=== PATIENT | female | born 1985 | race Caucasian/White ===

== ENCOUNTER 2020-04-10 10:59 | Emergency (ER) | payer OTHER, SELFPAY ==
--- NOTE | ~2020-04-10 | XR_ITS ---
EXAMINATION: XR tibia fibula LT 2V DATE: 04/10/2020 11:21 INDICATION: Fall down stairs with bruising at the medial left lower leg. TECHNIQUE: Anteroposterior and lateral views of the left tibia and fibula were obtained. COMPARISON: None. FINDINGS: Alignment is normal. No fracture. Joint spaces are normal. No left ankle joint effusion. Bone island in the left calcaneus. Soft tissues are unremarkable. IMPRESSION: 1. No osseous abnormality. Reviewed, dictated and finalized at location A. IMPRESSION: 1. No osseous abnormality.
[2020-04-10 11:10] VITALS: BP 140/89; PULSE 98; RESP 20; TEMP 36.8; O2SAT 99
--- NOTE | 2020-04-10 11:59 | ED.GENADULT ---
HPI - General Adult General Chief complaint: Extremity Injury, Lower <Nick Anderson PA-C Last Filed: 04/10/20 12:03> Stated complaint: fall/left leg pain <MARKOS Moctezuma Last Filed: 04/10/20 12:03> Time Seen by Provider: 04/10/20 11:18 <MARKOS Moctezuma Last Filed: 04/10/20 12:03> Source: patient <MARKOS Moctezuma Last Filed: 04/10/20 12:03> Mode of arrival: ambulatory <MARKOS Moctezuma Last Filed: 04/10/20 12:03> Limitations: no limitations <MARKOS Moctezuma Last Filed: 04/10/20 12:03> History of Present Illness HPI narrative: Patient is a 34-year-old female who presents with left doran injury that occurred a few days prior noting that she struck the anterior doran on an object that has resulted in bruising swelling and tenderness that radiates down into the ankle patient denies other injuries or complaints has crutches at home presents in no distress denies other injuries or complaints <Nick Anderson PA-C Last Filed: 04/10/20 12:03> Related Data Allergies/adverse reactions: Allergies Allergy/AdvReac Type Severity Reaction Status Date / Time codeine Allergy Unknown Dyspnea Verified 04/10/20 11:13 latex Allergy Unknown Rash Verified 04/10/20 11:13 Oyster Allergy Severe RESPIR. Uncoded 04/10/20 11:13 DISTRESS, SWELLING <MARKOS Moctezuma Last Filed: 04/10/20 12:03> Review of Systems Review of Systems: All systems reviewed & are unremarkable except as noted in HPI and below <MARKOS Moctezuma Last Filed: 04/10/20 12:03> [facility] Family History Family History: Family History (Updated 12/07/18 @ 09:03 by DOCTOR UNKNOWN) Mother Depression Hypertension Family history of osteoarthritis Family history of elevated blood lipids Family history of diabetes mellitus in first degree relative Father Family history of diabetes mellitus in first degree relative Hypertension Other Diabetes mellitus Family history of allergic disorder Family history of arthritis <MARKOS Moctezuma Last Filed: 04/10/20 12:03> Social History Social History: Social History Smoking status: Former smoker Second hand tobacco smoke exposure: No Smoking end date: 11/01/04 Alcohol intake: never <Nick Anderson PA-C - Last Filed: 04/10/20 12:03> Exam Narrative: Exam Narrative: GENERAL: Well-appearing, well-nourished, and in no acute distress. HEAD: Normocephalic, atraumatic. EYES: PERRLA and EOMI. ENT: Nares clear, no rhinorrhea or epistaxis. Mucous membranes moist. EXTREMITIES: Normal range of motion. No edema. Bruising swelling and tenderness to the anterior left doran SKIN: Warm, dry, no rash. NEURO: No focal deficits. Alert and oriented x3. Neurovascularly intact. Capillary refill less than 2 seconds PSYCH: Normal mood and affect. <Nick Anderson PA-C - Last Filed: 04/10/20 12:03> Course Course Emergency Course: Patient in the room in no distress aware of case findings treatment plan and diagnosis agreeing to follow-up as directed or to return if symptoms worsen or concerns <Nick Anderson PA-C - Last Filed: 04/10/20 12:03> Vital Signs Vital signs: Vital Signs Temperature 98.2 F 04/10/20 11:10 Pulse Rate 98 04/10/20 11:10 Respiratory Rate 04/10/20 11:10 Blood Pressure 140/89 04/10/20 11:10 Pulse Oximetry 99 04/10/20 11:10 Temperature 98.2 F 04/10/20 11:10 Pulse Rate 98 04/10/20 11:10 Respiratory Rate 20 04/10/20 11:10 Blood Pressure 140/89 04/10/20 11:10 Pulse Oximetry 99 04/10/20 11:10 <Nick Anderson PA-C - Last Filed: 04/10/20 12:03> Vital Signs Temperature 98.2 F 04/10/20 11:10 Pulse Rate 98 04/10/20 11:10 Respiratory Rate 20 04/10/20 11:10 Blood Pressure 140/89 04/10/20 11:10 Pulse Oximetry 99 04/10/20 11:10 Temperatu
== END 2020-04-10 12:17 | disposition home or self-care (01) ==
PROVIDERS: Emergency Provider Emergency Medicine; PCP Internal Medicine
DX: S80.12XA Contusion of left lower leg, initial encounter (principal); Z87.891 Personal history of nicotine dependence; X58.XXXA Exposure to other specified factors, initial encounter
CPT/HCPCS: 73590; 99283

== ENCOUNTER 2020-11-22 16:44 | Outpatient (CLI) | payer OTHER, SELFPAY ==
--- NOTE | ~2020-11-22 | MR_ITS ---
EXAMINATION: MR hip LT wo con DATE: 11/22/2020 17:55 INDICATION: Left hip pain TECHNIQUE: Magnetic resonance imaging (MRI) of the left hip was performed without intravenous contra st. Sequences included full-field axial PD-weighted FS FSE and T1-weighted FSE, coronal of the pelvis with T1-weighted FSE and PD-weighted FS FSE, small field of view of the affected hip with axial PD- weighted FS FSE, sagittal PD-weighted FS FSE and coronal PD weighted FS FSE. Additional radial T1-antelmo ghted FGR oriented orthogonal to the acetabular rim were obtained for evaluation of the labrum. COMPARISON: Left hip and pelvis radiograph dated 11/14/2020 FINDINGS: Bones/labrum/cartilage: Mild lower lumbar levocurvature. Alignment is otherwise normal. No fracture, avascular necrosis or p athologic marrow replacing process. Anterior acetabular over coverage which can also be seen with andreas ateral crossover signs at both hips on the prior pelvis radiographs. Linear increased signal at the b ase of the 1:00 to 2:00 position of the anterosuperior acetabular labrum which is equivocal for eithe r a small labral tear or normal sublabral sulcus. Partial-thickness cartilage loss with mild nonunifo rm joint space narrowing at the posterior aspect of the joint space. Cartilage surface appears smooth and there are no degenerative subchondral changes. Fluid: Symmetric physiologic amount of fluid within both hip joints. Soft tissues: Normal and symmetric muscle bulk and signal in the pelvis and visualized proximal thighs. The iliopso as, gluteal and proximal hamstring tendons are normal. The uterus is not identified and has likely be en surgically resected. Limited evaluation of visceral organs of the pelvis is otherwise unremarkabl e. Suggestion of prior umbilical hernia repair. No pathologically enlarged pelvic/inguinal lymphadeno gomez. IMPRESSION: 1. Possible anterior superior labral tear and mild osteoarthritis with posterior predominant joint sp emy narrowing at the left hip. This could be related to pincer-type femoral acetabular impingement gi john the anterior acetabular over coverage evident on the prior radiographs. Reviewed, dictated and finalized at location B. [employer] IMPRESSION: 1. Possible anterior superior labral tear and mild osteoarthritis with posterio r predominant joint space narrowing at the left hip. This could be related to p incer-type femoral acetabular impingement given the anterior acetabular over co verage evident on the prior radiographs.
== END 2020-11-22 16:45 | disposition home or self-care (01) ==
PROVIDERS: PCP Internal Medicine; Visit Provider Orthopaedic Surgery
DX: M25.552 Pain in left hip (principal)
CPT/HCPCS: 73721

== ENCOUNTER 2021-01-10 09:00 | Outpatient (RCR) | payer SELFPAY | END 2021-01-10 23:59 | disposition home or self-care (01) | LOC: ANHAUDIO 09:00 | PROVIDERS: PCP Internal Medicine; Visit Provider Internal Medicine | DX: Z46.1 Encounter for fitting and adjustment of hearing aid (principal) | CPT/HCPCS: 99199 ==

== ENCOUNTER 2022-03-22 08:49 | Outpatient (CLI) | payer OTHER, SELFPAY ==
--- NOTE | ~2022-03-22 | MR_ITS ---
EXAMINATION: MR lumbar spine wo con DATE: 03/22/2022 09:31 INDICATION: Discogenic lumbar pain . TECHNIQUE: Magnetic resonance imaging (MRI) of the lumbar spine was performed without intravenous con trast. Sequences included sagittal T2-weighted FSE, sagittal T2-weighted FS FSE, sagittal T1-weighted FSE, and axial T2-weighted FSE. COMPARISON: None FINDINGS: The last fully formed and hydrated disc is designated L5-S1. The marrow signal is benign an d homogenous. Conus terminates at L1-L2. Multilevel disc dehydration. The following disc levels are s pecifically discussed: T11-T12: The disc does not extend beyond the endplate margin. There is no facet joint osteoarthritis. There is no neural foraminal stenosis. There is no central canal stenosis. T12-L1: The disc does not extend beyond the endplate margin. There is no facet joint osteoarthritis. There is no neural foraminal stenosis. There is no central canal stenosis. L1-L2: Mild diffuse bulge. There is mild facet joint osteoarthritis. There is no neural foraminal alicia nosis. There is no central canal stenosis. L2-L3: Moderate diffuse bulge. There is mild facet joint osteoarthritis. There is no neural foraminal stenosis. There is no central canal stenosis. L3-L4: Moderate diffuse bulge. There is moderate facet joint osteoarthritis. There is no neural angie inal stenosis. There is no central canal stenosis. L4-L5: Moderate diffuse bulge. There is moderate facet joint osteoarthritis. There is mild bilateral inferior neural foraminal stenosis. There is no central canal stenosis. L5-S1: Moderate diffuse bulge with a right lateral predominance. Small, focal longitudinal rent in th e posterior disc. There is moderate facet joint osteoarthritis. There is no neural foraminal stenosis . There is no central canal stenosis. IMPRESSION: 1. No severe central canal or neural foraminal narrowing. 2. Moderate degenerative disc disease with a small focal posterior rent in the annulus fibrosis at L5 -S1. 3. Additional multilevel mild-moderate degenerative disc and facet arthropathy described above. Reviewed, dictated and finalized at location K. IMPRESSION: 1. No severe central canal or neural foraminal narrowing. 2. Moderate degenerative disc disease with a small focal posterior rent in the annulus fibrosis at L5-S1. 3. Additional multilevel mild-moderate degenerative disc and facet arthropathy described above.
== END 2022-03-22 08:50 | disposition home or self-care (01) ==
PROVIDERS: PCP Internal Medicine; Visit Provider Internal Medicine
DX: M51.37 Other intervertebral disc degeneration, lumbosacral region (principal); M51.36 Other intervertebral disc degeneration, lumbar region
CPT/HCPCS: 72148

== ENCOUNTER 2022-05-15 14:36 | Outpatient (CLI) | payer OTHER, SELFPAY ==
--- NOTE | ~2022-05-15 | MR_ITS ---
EXAMINATION: MR thoracic spine wo con DATE: 05/15/2022 15:33 INDICATION: Discogenic thoracic spine pain. TECHNIQUE: Magnetic resonance imaging (MRI) of the thoracic spine was performed without intravenous c ontrast. Sagittal localizer T1-weighted FSE of the cervicothoracic spine was obtained. Thoracic spine sequences included sagittal T2-weighted FSE, sagittal T1-weighted SE, Sagittal T2-weighted FS FSE, a nd axial T2-weighted FSE. COMPARISON: None FINDINGS: Alignment is normal.Vertebral body heights are normal. Normal marrow signal.Mild disc height loss at T3-T4 through T8-T9. There is normal spinal cord signal. The conus terminates at L1-L2. Paravertebral soft tissues are unremarkable. The following disc levels are specifically discussed: C6-C7: The disc does not extend beyond the endplate margin. There is mild bilateral uncovertebral ost eoarthritis. There is moderate bilateral facet osteoarthritis. There is no neural foraminal stenosis. There is no central canal stenosis. C7-T1: The disc does not extend beyond the endplate margins. There is mild bilateral uncovertebral os teoarthritis. There is moderate bilateral facet osteoarthritis. There is mild left neural foraminal s tenosis. There is no central canal stenosis. T1-T2: There is a small right paracentral disc protrusion. There is mild right and moderate left face t osteoarthritis. There is mild right neural foraminal stenosis. There is mild central canal stenosis . T2-T3: Small left paracentral disc protrusion. There is mild bilateral facet osteoarthritis. There is no neural foraminal stenosis. There is minimal central canal stenosis. T3-T4: Disc is bulging. There is mild bilateral facet osteoarthritis. There is mild right neural fora kirk stenosis. There is mild central canal stenosis with slight flattening of the right ventral surf emy of the cord. T4-T5: Disc is mildly bulging with superimposed right subarticular zone disc protrusion. There is mil d bilateral facet osteoarthritis. There is mild right neural foraminal stenosis. There is minimal des tral canal stenosis. T5-T6: Annular fissure and small left paracentral disc extrusion with disc material extending up to 6 mm cephalad to the level of the inferior endplate of T5 . There is also a small right paracentral di sc protrusion. There is mild bilateral facet osteoarthritis. There is no neural foraminal stenosis. T here is mild central canal stenosis with mild flattening of the left ventral surface of the cord. T6-T7: Disc is bulging. There is mild bilateral facet osteoarthritis. There is minimal left neural fo raminal stenosis. There is mild central canal stenosis with slight flattening of the right ventral tate rface of the cord. T7-T8: Disc is minimally bulging with superimposed annular fissure and left paracentral disc extrusio n with disc material extending approximately 3 mm beyond the superior and inferior endplate margins. There is mild bilateral facet osteoarthritis. There is mild left neural foraminal stenosis. There is mild central canal stenosis with slight flattening of the left ventral surface of the cord. T8-T9: Annular fissure and broad-based disc extrusion extending from the left to right subarticular z ones with disc material extending 2-3 mm cephalad and caudal to the level of the endplates. There is mild bilateral facet osteoarthritis. There is no neural foraminal stenosis. There is mild central can al stenosis with slight flattening of the right ventral surface of the cord. T9-T10: The disc does not extend beyond the endplate margins. There is mild right and minimal left fa cet osteoarthritis. There is no neural foraminal stenosis. There is no central canal stenosis. T10-T11: The disc is minimally bulging. There is mild bilateral facet osteoarthritis. There is no dale ral foraminal stenosis. There is no central canal stenosis. T11
== END 2022-05-15 14:37 | disposition home or self-care (01) ==
PROVIDERS: PCP Internal Medicine; Visit Provider Internal Medicine
DX: M47.894 Other spondylosis, thoracic region (principal)
CPT/HCPCS: 72146